=== PATIENT | male | born 1960 | race Asian ===

== ENCOUNTER 2024-05-19 15:54 | Emergency (ER) | payer OTHER ==
[~2024-05-19] VITALS: Ht 180.3 cm; Wt 81.3 kg
--- NOTE | 2024-05-19 16:34 | ED.PDOC ---
History of Present Illness HPI Comments This is a 64-year-old male who comes in with chief complaint of status post fall. The patient states that he was trying to get onto his deck and landed on the right shoulder. This occurred approximately 90 minutes prior to arrival. The patient was no other complaints except for the right shoulder pain. He states that the pain is a 10/10. He was brought to the emergency department's by a friend. Chief Complaint: Upper Extremity Time Seen by MD: 16:01 Reviewed Notes: Nurses Notes, Medications, Allergies (NKDA ) Allergies: Coded Allergies: NO KNOWN ALLERGIES (Unverified , 05/19/24) Home Meds Active Scripts Hydrocodone-Acetaminophen (Hydrocodone Bitartrate/AC 5-325 mg) 1 Tab Tab, 1 TAB PO Q8HP PRN for 5 Days, #15 TAB Prov:CHRISTEN MATTHEW MD 05/19/24 Information Source: Patient Mode of Arrival: Ambulatory Severity: Moderate Timing: Minutes Duration: Since onset Prehospital treatment: None Location: Right shoulder pain Quality Sharp shoulder pain Past Medical History PAST MEDICAL HISTORY: CAD, DM Past Medical History (Other): Renal disease Surgical History: Cholecystectomy, PTCA Surgical History (Other): Renal Transplant Family History Family History: Unknown Social History Smoker: Non-Smoker Alcohol: Denies ETOH Use Drugs: Denies Drug Use Lives In: Home Constitutional: denies: chills, diaphoresis, fatigue, fever, malaise, sweats, weakness, others EENTM: denies: blurred vision, double vision, ear bleeding, ear discharge, ear drainage, ear pain, ear ringing, eye pain, eye redness, hearing loss, mouth pain, mouth swelling, nasal discharge, nose bleeding, nose congestion, nose pain, photophobia, tearing, throat pain, throat swelling, voice changes, others Respiratory: denies: cough, hemoptysis, orthopnea, SOB at rest, shortness of breath, SOB with excertion, stridor, wheezing, others Cardiovascular: denies: chest pain, dizzy spells, diaphoresis, Dyspnea on exertion, edema, irregular heart beat, left arm pain, lightheadedness, palpitations, PND, syncope, others Gastrointestinal: denies: abdomen distended, abdominal pain, blood streaked bowels, constipated, diarrhea, dysphagia, difficulty swallowing, hematemesis, melena, nausea, poor appetite, poor fluid intake, rectal bleeding, rectal pain, vomiting, others Genitourinary: denies: burning, dysuria, flank pain, frequency, hematuria, incontinence, penile discharge, penile sore, pain, testicle pain, testicle swelling, urgency, others Neurological: denies: dizziness, fainting, headache, left sided numbness, left sided weakness, numbness, paresthesia, pre-existing deficit, right sided numbn ess, right sided weakness, seizure, speech problems, tingling, tremors, weakness, others Musculoskeletal: reports: others (Right shoulder pain after falling); denies: back pain, gout, joint pain, joint swelling, muscle pain, muscle stiffness, neck pain Integumetry: denies: bruises, change in color, change in hair/nails, dryness, laceration, lesions, lumps, rash, wounds, others Allergic/Immunocompromised: denies: Difficulty Healing, Frequent Infections, Hives, Itching, others Hematologic/Lymphatic: denies: anemia, blood clots, easy bleeding, easy bruising, swollen glands, others Endocrine: denies: excessive hunger, excessive sweating, excessive thirst, excessive urination, flushing, intolerance to cold, intolerance to heat, unexplained weight gain, unexplained weight loss, others Psychiatric: denies: anxiety, bipolar disorder, depression, hopeless, panic disorder, schizophrenia, sleepless, suicidal, others Physical Exam General Appearance: Moderate Distress HEENT: Normal ENT Inspection, Pharynx Normal, TMs Normal Neck: Full Range of Motion, Non-Tender, Normal, Normal Inspection Respiratory: Chest Non-Tender, Lungs Clear, No Accessory Muscle Use, No Respiratory Distress, Normal Breath Sounds Cardiovascular: No Edema, No JVD, No Murmur, No Gallop, Normal Peripheral Pulses, Regular Rate/Rhythm Breast Exam: Deferred Gastrointestinal: No Organomegaly, Non Tender, No Pulsatile Mass, Normal Bowel Sounds, Soft Genitalia: Deferred Pelvic: Deferred Rectal: Deferred Extremities: No calf tenderness, Tender (Tenderness to the right shoulder with some crepitus) Musculoskeletal : Location: Right Extremity Location: Shoulder Apperance: Limited ROM, Tenderness: Moderate Neurologic: Alert, breastfeeding peer counselor II-XII nml as Tested, No Motor Deficits, Normal Affect, Normal Mood, No Sensory Deficits Cerebellar Function: Normal Reflexes: Normal Skin: Dry, Normal Color, Warm Lymphatic: No Adenopathy Was a procedure done? Was a procedure done?: No Differential Dx Considerations may include: Fracture, strain X-Ray, Labs, Meds, VS Vital Signs Date Time Temp Pulse Resp B/P (MAP) Pulse Ox O2 Delivery O2 Flow Rate FiO2 05/19/24 16:20 98.2 74 20 137/74 (95) 97 X-rays of the right shoulder shows: FINDINGS/IMPRESSION: : Comminuted and displaced fracture of the distal clavicle. Widening of the acromioclavicular and coracoclavicular joint space distance may represent underlying ligamentous injury. X-ray of the right elbow was negative for any fracture The patient was being discharged and will follow up with the primary care doctor The patient will return to the emergency department's condition worsens The patient was placed in a clavicular strap. The patient was given a prescription of [place] The patient is being referred to the orthopedic surgeon. Images Reviewed?: Images reviewed and evaluated by me Time of 1ST Reevaluation: 16:34 Reevaluation 1ST: Improved Patient Education/Counseling: Diagnosis, Treatment, Prognosis, Need For Follow Up Family Education/Counseling: No Family Present Departure 1 Departure Time of Disposition: 17:56 Impression: Primary Impression: Contusion of right elbow Qualified Codes: S50.01XA - Contusion of right elbow, initial encounter Additional Impression: Right clavicle fracture Qualified Codes: S42.021A - Displaced fracture of shaft of right clavicle, initial encounter for closed fracture Disposition: 01 HOME / SELF CARE / HOMELESS Condition: Fair e-Prescriptions Hydrocodone-Acetaminophen (Hydrocodone Bitartrate/AC 5-325 mg) 1 Tab Tab 1 TAB PO Q8HP PRN for 5 Days, #15 TAB Prov: CHRISTEN MATTHEW MD 05/19/24 Discharged With: Self Critical Care Note Critical Care Time?: No Stability Stability form required: No Heart Score Heart Score: Heart Score Response (Comments) Value History N/A 0 EKG N/A 0 Age N/A 0 Risk Factors N/A 0 Troponin N/A 0 Total 0 CHRISTEN MATTHEW MD May 19, 2024 16:34
--- NOTE | 2024-05-19 17:02 | DVH ---
CLINICAL INDICATION: Trauma, pain fall TECHNIQUE: XY R SHOULDER 2+ VIEW XRAY Comparison: None FINDINGS/IMPRESSION: : Comminuted and displaced fracture of the distal clavicle. Widening of the acromioclavicular and coracoclavicular joint space distance may represent underlying ligamentous injury.
--- NOTE | 2024-05-19 17:14 | DVH ---
CLINICAL INDICATION: RIGHT ELBOW PAIN TECHNIQUE: XY R ELBOW 3 VIEW XRAY Comparison: None FINDINGS/IMPRESSION: : There is no evidence of acute fracture or dislocation. Soft tissues are unremarkable.
[2024-05-19] MEDS ORDERED: HYDR-4902 PO (17:58)
[2024-05-19] MEDS: HYDROcodone-ACET 5/325MG TAB PO ONE (20:13)
[2024-05-19 20:15] VITALS: BP 130/70; PULSE 70; RESP 16; TEMP 98.2; O2SAT 98
== END 2024-05-19 20:41 | disposition home or self-care (01) ==
LOC: ER 15:54
DX: S42.031A Displaced fracture of lateral end of right clavicle, initial encounter for closed fracture (principal); S50.01XA Contusion of right elbow, initial encounter; E11.9 Type 2 diabetes mellitus without complications; Z90.49 Acquired absence of other specified parts of digestive tract; Z90.89 Acquired absence of other organs; Z98.890 Other specified postprocedural states; W18.39XA Other fall on same level, initial encounter; Y93.89 Activity, other specified; Y92.89 Other specified places as the place of occurrence of the external cause; Y99.8 Other external cause status
CPT/HCPCS: 73030; 73080